=== PATIENT | male | born 1985 | race Caucasian/White ===

== ENCOUNTER 2017-01-08 02:30 | Emergency (ER) | payer OTHER ==
[~2017-01-08] VITALS: Ht 193 cm; Wt 85.3 kg
[2017-01-08] MEDS ORDERED: NOHOMEMEDICATIONS (02:50)
[2017-01-08 03:20] VITALS: BP 132/79
== END 2017-01-08 03:37 | disposition designated cancer center or children's hospital (05) ==
LOC: ER 02:30
DX: F15.159 Other stimulant abuse with stimulant-induced psychotic disorder, unspecified (principal); F17.210 Nicotine dependence, cigarettes, uncomplicated; F10.99 Alcohol use, unspecified with unspecified alcohol-induced disorder; Z88.1 Allergy status to other antibiotic agents